=== PATIENT | female | born 1990 | race Caucasian/White ===

== ENCOUNTER 2019-02-28 20:22 | Emergency (ER) | payer MEDICAID ==
[~2019-02-28] VITALS: Ht 167.6 cm; Wt 60.8 kg
[2019-02-28 20:27] VITALS: BP_SYST 156
--- NOTE | 2019-02-28 20:33 | NUR ---
Patient to [facility] to [facility] for evaluation. Side rails up. Report given to LAURIE SARKAR.
--- NOTE | 2019-02-28 20:35 | NUR ---
Patient arrives to ER via [facility], ambulatory in handcuffs, in custody here for medical clearance. Patient reports that she is 22 weeks but is without complaint at this time. Patient is awake, alert and oriented in no acute distress, vital signs stable, respirations even and unlabored, skin warm and dry to touch. Awaiting evaluation by ER MD, will continue to observe and assess. [facility] remains at bedside.
--- NOTE | 2019-02-28 21:35 | NUR ---
Patient resting quietly in no acute distress, patient continues to wait for MD evaluation.
--- NOTE | 2019-02-28 22:30 | NUR ---
Patient resting quietly in no acute distress, without complaints at this time. Awaiting evaluation by ER MD, will continue to observe and assess. [facility] remains at bedside.
--- NOTE | 2019-02-28 22:59 | NUR ---
ER at bedside examining patient.
[2019-02-28 23:15] VITALS: BP_SYST 140
--- NOTE | 2019-02-28 23:15 | NUR ---
Patient given written and verbal discharge instructions and verbalizes understanding. ER MD discussed with patient the results and treatment provided. Patient in stable condition. ID arm band removed. No RX given. Patient educated on pain management and to follow up with PMD. Pain Scale 0. Opportunity for questions provided and answered. Medication side effect fact sheet provided. Patient dc'd in custody of JAMEY Soni, patient left ER in handcuffs, able to ambulate without difficulty with slow, steady gait without complaints.
== END 2019-02-28 23:15 ==
LOC: SED 20:22
DX: O26.892 Other specified pregnancy related conditions, second trimester (principal); R10.9 Unspecified abdominal pain; F41.9 Anxiety disorder, unspecified; Z3A.22 22 weeks gestation of pregnancy
CPT/HCPCS: 99283